=== PATIENT | female | born 1975 | race Caucasian/White ===

== ENCOUNTER 2019-10-04 07:16 | Emergency (ER) | payer SELFPAY ==
[~2019-10-04] VITALS: Ht 182.8 cm; Wt 86.2 kg
[2019-10-04] MEDS ORDERED: KETOROLAC 30 MG/ML VIAL IVP STA (07:30)
--- NOTE | 2019-10-04 07:38 | ED Back Pain ---
General Chief Complaint: Back Problems Stated Complaint: BACK INJ Source of Information: Patient History of Present Illness Date Seen by Provider: Oct 04, 2019 Time Seen by Provider: 07:22 Initial Comments PT ARRIVES VIA POV FROM HOME STATES THAT ON THURSDAY NIGHT 09/30/19, SHE WAS STRUCK ON RIGHT UPPER BACK/SCAPULA AREA WITH A HIT SOFT BALL ( HITTER WAS 17 Y.O. AND WAS A DIRECT HIT OFF THE BAT ) HAS HAD CONTINUED PAIN AND PAIN WITH BREATHING AND IS "HARD TO BREATHE" DUE TO PAIN PAIN IS NOW RADIATING AROUND TO RIGHT BREAST NO FEVER NO COUGH NO ABDOMINAL PAIN NO PARESTHESIAS OR MOTOR DEFICITS NO RELIEF WITH ALEVE. STATES SHE WAS UNABLE TO SLEEP DUE TO PAIN LM--6 YEARS AGO, HAS HAD BTL AND NOVASURE ENDOMETRIAL ABLATION Other Comments PCP: NONE Allergies and Home Medications Allergies Coded Allergies: No Known Drug Allergies (Unverified , 10/04/19) Home Medications Meloxicam 15 Mg Tablet, 15 MG PO DAILY Prescribed by: CHELITA MONTELONGO on 10/04/19913 Tramadol HCl 50 Mg Tablet, 50 MG PO Q4H Prescribed by: CHELITA MONTELONGO on 10/04/1914 Patient Home Medication List Home Medication List Reviewed: Yes Review of Systems Constitutional: no symptoms reported EENTM: no symptoms reported Respiratory: see HPI Cardiovascular: see HPI Gastrointestinal: no symptoms reported Genitourinary: no symptoms reported : No Control/STD Prophylaxis: Other (BTL AND NOVASURE ENDOMETRIAL ABLATION) Musculoskeletal: see HPI, back pain Skin: no symptoms reported Psychiatric/Neurological: No Symptoms Reported Past Bwrfikf-Paehct-Wagbdn Hx Past Med/Social Hx: Reviewed and Corrections made Patient Social History Alcohol Use: Regular Use Recreational Drug Use: No Smoking Status: Current Everyday Smoker (< 1/2 PPD) Recent Foreign Travel: No Contact w/Someone Who Travel: No Seasonal Allergies Seasonal Allergies: Yes Past Medical History Surgeries: Yes (NOVASURE ENDOMETRIAL ABLATION; UTERINE FIBRODS REMOVED) Tonsillectomy, Tubal Ligation Respiratory: No Cardiac: No Neurological: No : No Reproductive Disorders: Yes Female Reproductive Disorders: Menstrual Problems Genitourinary: No Gastrointestinal: Yes Gastroesophageal Reflux Musculoskeletal: Yes Chronic Back Pain Endocrine: No HEENT: Yes (S/P TONSILLECTOMY) Tonsilitis Cancer: No Psychosocial: No Integumentary: No Blood Disorders: No Physical Exam Vital Signs Vital Signs - First Documented 10/04/19 07:25 Temp 36.3 Pulse 91 Resp 20 B/P (MAP) 146/103 (117) Pulse Ox 100 O2 Delivery Room Air Capillary Refill : Height, Weight, BMI Height: '" Weight: lbs. oz. kg; BMI Method: General Appearance: No Apparent Distress, WD/WN, Other (WALKS UPRIGHT WITHOUT DIFFICULTY) HEENT: PERRL/EOMI Neck: Full Range of Motion, Normal Inspection, Non Tender, Supple Cardiovascular: Regular Rate, Rhythm, No Edema, No JVD, No Murmur, Normal Peripheral Pulses Respiratory: Normal Breath Sounds, No Accessory Muscle Use, No Respiratory Distress, Other (TENDERNESS TO RIGHT SCAPULAR AREA AND RIGHT CHEST WALL TO RIGHT BREAST. NO EXTERNAL EVIDENCE OF TRAUMA. 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 Skin: Normal Color, Warm/Dry; No Ecchymosis Progress/Results/Core Measures Results/Orders Lab Results Laboratory Tests Test 10/04/19 07:54 10/04/19 09:30 Range/Units White Blood Count 7.8 4.3-11.0 10^3/uL Red Blood Count 4.20 L 4.35-5.85 10^6/uL Hemoglobin 15.6 11.5-16.0 G/DL Hematocrit 44 35-52 % Mean Corpuscular Volume 104 H 80-99 FL Mean Corpuscular Hemoglobin 37 H 25-34 PG Mean Corpuscular Hemoglobin Concent 36 32-36 G/DL Red Cell Distribution Width 13.2 10.0-14.5 % Platelet Count 225 130-400 10^3/uL Mean Platelet Volume 10.3 7.4-10.4 FL Neutrophils (%) (Auto) 57 42-75 % Lymphocytes (%) (Auto) 28 12-44 % Monocytes (%) (Auto) 12 0-12 % Eosinophils (%) (Auto) 2 0-10 % Basophils (%) (Auto) 1 0-10 % Neutrophils # (Auto) 4.5 1.8-7.8 X 10^3 Lymphocytes # (Auto) 2.2 1.0-4.0 X 10^3 Monocytes # (Auto) 1.0 0.0-1.0 X 10^3 Eosinophils # (Auto) 0.2 0.0-0.3 10^3/uL Basophils # (Auto) 0.0 0.0-0.1 10^3/uL Sodium Level 139 135-145 MMOL/L Potassium Level 3.4 L 3.6-5.0 MMOL/L Chloride Level 103 98-107 MMOL/L Carbon Dioxide Level 21 21-32 MMOL/L Anion Gap 15 H 5-14 MMOL/L Blood Urea Nitrogen 10 7-18 MG/DL Creatinine 0.86 0.60-1.30 MG/DL Estimat Glomerular Filtration Rate > 60 BUN/Creatinine Ratio 12 Glucose Level 89 70-105 MG/DL Calcium Level 9.4 8.5-10.1 MG/DL Corrected Calcium 9.0 8.5-10.1 MG/DL Total Bilirubin 1.2 H 0.1-1.0 MG/DL Aspartate Amino Transf (AST/SGOT) 129 H 5-34 U/L Alanine Aminotransferase (ALT/SGPT) 175 H 0-55 U/L Alkaline Phosphatase 114 40-136 U/L Total Protein 7.6 6.4-8.2 GM/DL Albumin 4.5 3.2-4.5 GM/DL Serum Test, Qualitative NEGATIVE NEGATIVE Urine Color YELLOW Urine Clarity CLEAR Urine pH 6.5 5-9 Urine Specific Art <=1.005 1.016-1.022 Urine Protein TRACE H NEGATIVE Urine Glucose (UA) NEGATIVE NEGATIVE Urine Ketones 1+ H NEGATIVE Urine Nitrite POSITIVE H NEGATIVE Urine Bilirubin NEGATIVE NEGATIVE Urine Urobilinogen 0.2 < = 1.0 MG/DL Urine Leukocyte Esterase NEGATIVE NEGATIVE Urine RBC (Auto) 2+ H NEGATIVE Urine RBC 2-5 H /HPF Urine WBC 2-5 /HPF Urine Squamous Epithelial Cells 5-10 /HPF Urine Crystals NONE /LPF Urine Bacteria TRACE /HPF Urine Casts NONE /LPF Urine Mucus NEGATIVE /LPF Urine Culture Indicated YES My Orders Orders - CHELITA MONTELONGO DO Ed Iv/Invasive Line Start (10/04/19 07:30) Monitor-Rhythm Ecg Trace Only (10/04/19 07:30) Chest Pa/Lat (2 View) (10/04/19 07:30) Cbc With Automated Diff (10/04/19 07:30) Comprehensive Metabolic Panel (10/04/19 07:30) Hcg,Qualitative Serum (10/04/19 07:30) Ua Culture If Indicated (10/04/19 07:30) Ketorolac Injection (Toradol Injection) (10/04/19 07:30) Iohexol Injection (Omnipaque 350 Mg/Ml 1 (10/04/19 08:15) Received Contrast (Hold Metformin- Contr (10/04/19 08:15) Ns (Ivpb) (Sodium Chloride 0.9% Ivpb Bag (10/04/19 08:15) Ct Chest W (10/04/19 08:38) Urine Culture (10/04/19 09:30) Medications Given in ED Current Medications Medications Dose Ordered Sig/Toby Route Start Time Stop Time Status Last Admin Dose Admin Iohexol 75 ml ONCE ONCE IV 10/04/19 08:15 10/04/19 08:16 DC 10/04/19 08:45 74 ML Sodium Chloride 100 ml ONCE ONCE IV 10/04/19 08:15 10/04/19 08:16 DC 10/04/19 08:45 80 ML Vital Signs/I&O 10/04/19 10/04/19 07:25 10:05 Temp 36.3 Pulse 91 72 Resp 20 15 B/P (MAP) 146/103 (117) 133/97 Pulse Ox 100 99 O2 Delivery Room Air Room Air Progress Progress Note : Progress Note PAIN IMPROVED WITH TORADOL AT DISMISSAL, PT NOW STATES THAT SHE TAKES FLEXERIL EVERY NIGHT FOR HER CHRONIC BACK PAIN, AND SEES DR. MAHARAJ IN [place] FOR IT SHE ALSO STATES THAT SHE HAS BEEN DRINKING ALOT THE LAST 2 MONTHS DUE TO "COVID" Diagnostic Imaging Comments CXR--NO ACUTE PROCESS, PER RADIOLOGIST REPORT AT 09 CT CHEST--PER RADIOLOGIST REPORT AT 911 IMPRESSION: 1. No identified acute fracture. 2. No acute cardiopulmonary abnormality. 3. Prominent area of focal fat adjacent to the gallbladder fossa with additional generalized diffuse fatty infiltration of the liver. Reviewed: Reviewed by Me Departure Impression Primary Impression: RIGHT UPPER BACK AND SCAPULA CONTUSION Additional Impression: Elevated liver enzymes Disposition: 01 HOME, SELF-CARE Condition: Stable Departure-Patient Inst. Patient Instructions: Contusion (DC), Liver Function Test Add. Discharge Instructions: ALTERNATE ICE AND HEAT TO SORE AREAS AT 20 MINUTE INTERVALS ACTIVITIES TOLERATED FOLLOW UP WITH DR OF CHOICE IN 1 WEEK FOR FURTHER CARE AND RECHECK LIVER ENZYMES NO ALCOHOL NO TYLENOL/ACETAMINOPHEN All discharge instructions reviewed with patient and/or family. Voiced understanding. 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
[2019-10-04 08:02] LABS: BASOPHILS % (AUTO) 1 % (0-10); EOSINOPHILS # (AUTO) 0.2 10^3/uL (0.0-0.3); EOSINOPHILS % (AUTO) 2 % (0-10); HEMATOCRIT 44 % (35-52); HEMOGLOBIN 15.6 G/DL (11.5-16.0); LYMPHOCYTES # (AUTO) 2.2 X 10^3 (1.0-4.0); LYMPHOCYTES % (AUTO) 28 % (12-44); MEAN CORPUSCULAR HEMOGLOBIN 37 PG (25-34); MEAN CORPUSCULAR HGB CONC 36 G/DL (32-36); MEAN CORPUSCULAR VOLUME 104 FL (80-99); MEAN PLATELET VOLUME 10.3 FL (7.4-10.4); MONOCYTES % (AUTO) 12 % (0-12); NEUTROPHILS # (AUTO) 4.5 X 10^3 (1.8-7.8); NEUTROPHILS % (AUTO) 57 % (42-75); PLATELET COUNT 225 10^3/uL (130-400); RED CELL DISTRIBUTION WIDTH 13.2 % (10.0-14.5); WHITE BLOOD COUNT 7.8 10^3/uL (4.3-11.0)
[2019-10-04] MEDS ORDERED: NS 100 ML (IVPB) BAG IV ONE (08:15)
[2019-10-04] MEDS ORDERED: IOHEXOL 350 MG/ML 100 ML (OMNIPAQUE 350) VIAL IV ONE (08:15)
[2019-10-04] MEDS ORDERED: HOLD METFORMIN - RECEIVED CONTRAST 20 ML VIAL IV SCH (08:15)
[2019-10-04 08:26] LABS: ALANINE AMINOTRANSFERASE 175 U/L (0-55); ALBUMIN 4.5 GM/DL (3.2-4.5); ALKALINE PHOSPHATASE 114 U/L (40-136); BILIRUBIN,TOTAL 1.2 MG/DL (0.1-1.0); BUN/CREATININE RATIO 12; CALCIUM 9.4 MG/DL (8.5-10.1); CARBON DIOXIDE 21 MMOL/L (21-32); CHLORIDE 103 MMOL/L (98-107); CREATININE SERUM 0.86 MG/DL (0.60-1.30); GFR ESTIMATED > 60; GLUCOSE 89 MG/DL (70-105); POTASSIUM 3.4 MMOL/L (3.6-5.0); SODIUM 139 MMOL/L (135-145); TOTAL PROTEIN 7.6 GM/DL (6.4-8.2)
--- NOTE | 2019-10-04 08:58 | Diagnostic Imaging Report ---
INDICATION: Chest pain post injury PA and lateral chest obtained at 0845 a.m. Heart and mediastinal silhouette are normal in appearance. The lungs are clear. There is no pneumothorax or pleural fluid. There is no overt bony abnormality. IMPRESSION: Negative chest. Dictated by: Dictated on workstation # [id number]
--- NOTE | 2019-10-04 09:10 | Diagnostic Imaging Report ---
PROCEDURE: CT chest with contrast only. TECHNIQUE: Multiple contiguous axial images were obtained through the chest after administration of intravenous contrast. Auto Exposure Controls were utilized during the CT exam to meet ALARA standards for radiation dose reduction. DATE: October 04, 2019. COMPARISON: None. INDICATION: 43-year-old female, direct trauma to the right scapula on Thursday. Continued chest pain. FINDINGS: There are mild linear opacities in the right and left lower lobes, most consistent with atelectasis. There is no pulmonary nodule. There is no lung mass. There is no otherwise noted focal airspace consolidation. There is no pneumothorax. There is no pleural effusion. The central airways are patent. The heart is not enlarged. There is no pericardial effusion. There is no identified central pulmonary embolus. There is no mediastinal hematoma. There is no identified abnormally enlarged mediastinal, hilar, or axillary lymph node which meets CT size criteria for adenopathy. There is an area of low-attenuation adjacent to the gallbladder fossa with vessels coursing through the low attenuation. This most likely relates to an area of prominent focal fat. There may be generalized diffuse fatty infiltration of the liver. The outer liver contours are not nodular. There is an accessory splenule on axial image 130. There is no identified acute fracture or other acute osseous abnormality. There is a superior endplate Schmorl's node of T5. IMPRESSION: 1. No identified acute fracture. 2. No acute cardiopulmonary abnormality. 3. Prominent area of focal fat adjacent to the gallbladder fossa with additional generalized diffuse fatty infiltration of the liver. Dictated by: Dictated on workstation # [id number]
[2019-10-04] MEDS ORDERED: MELO15TA14 PO (09:14)
[2019-10-04] MEDS ORDERED: TRAM-42 PO (09:14)
[2019-10-04] MEDS ORDERED: CYCL10TA9 PO (09:14)
[2019-10-04 09:43] LABS: BILIRUBIN,URINE NEGATIVE (NEGATIVE); CLARITY,URINE CLEAR; COLOR,URINE YELLOW; GLUCOSE, URINE (UA) NEGATIVE (NEGATIVE); KETONES,URINE 1+ (NEGATIVE); LEUKOCYTE ESTERASE ,URINE NEGATIVE (NEGATIVE); NITRITE,URINE POSITIVE (NEGATIVE); PH,URINE 6.5 (5-9); PROTEIN,URINE TRACE (NEGATIVE)
[2019-10-04 09:51] LABS: BACTERIA,URINE TRACE /HPF
[2019-10-04 10:05] VITALS: BP 133/97
== END 2019-10-04 10:05 | disposition home or self-care (01) ==
LOC: EDUNIT# 07:16 → ER 07:17
DX: S40.011A Contusion of right shoulder, initial encounter (principal); S20.221A Contusion of right back wall of thorax, initial encounter; R94.5 Abnormal results of liver function studies; F17.200 Nicotine dependence, unspecified, uncomplicated; W21.07XA Struck by softball, initial encounter
CPT/HCPCS: 36415; 71046; 71260; 80053; 81000; 84703; 85025; 87077; 87088; 87186; 93041

== ENCOUNTER 2020-06-01 10:33 | Emergency (ER) | payer SELFPAY ==
[~2020-06-01] VITALS: Ht 182 cm; Wt 86.0 kg
[~2020-06-01 10:33] MED LIST: CYCL10TA9 PO; MELO15TA14 PO; TRAM-42 PO
[2020-06-01] MEDS ORDERED: KETOROLAC 30 MG/ML VIAL ONE (11:01)
[2020-06-01] MEDS ORDERED: LACTATED RINGERS 1,000 ML IV ONE ×2 (11:01→11:15)
[2020-06-01] MEDS ORDERED: ONDANSETRON 4 MG/2 ML (SDV) Z0FRAN ONE (11:02)
--- NOTE | 2020-06-01 11:11 | ED Cough/URI ---
General Chief Complaint: Cough/Cold/Flu Symptoms Stated Complaint: FEVER, BODY ACHES Nursing Triage Note: PT AMB TO ROOM 10 PT HAS FEVER, CARDONA, DIARRHEA , MUSCLE ACHES AND FATIGUE SINCE THURSDAY PT TESTED - FOR COVID AND - FLU ON THURSDAY THIS WEEK Sepsis Screen: Possible Sepsis Risk Source: patient Exam Limitations: no limitations History of Present Illness Date Seen by Provider: Jun 01, 2020 Time Seen by Provider: 10:47 Initial Comments Patient presents ER by private conveyance from home with chief complaint that her 5 days of headache, nausea without vomiting and diarrhea as well as fever of 102 tonight were not improving. She had exposure about a week ago to her sister at a basketball game who later tested positive for COVID-19. Her symptoms started 5 days ago. She is been using Tylenol, Aleve and ibuprofen for symptoms. No antidiarrheals. She called her doctor and they recommend she come out to be checked out. She was tested negative for Covid 2 days ago at [facility]. They did not give her any medicines for her nausea or wendy mmendations for her diarrhea. She has been drinking Gatorade. Allergies and Home Medications Allergies Coded Allergies: No Known Drug Allergies (Unverified , 10/04/19) Home Medications Meloxicam 15 Mg Tablet, 15 MG PO DAILY Prescribed by: CHELITA MONTELONGO on 10/04/19 0914 Ondansetron 4 Mg Tab.rapdis, 4 MG PO Q6H PRN for NAUSEA/VOMITING Prescribed by: MACKENZIE LAW on 06/01/20 1233 Tramadol HCl 50 Mg Tablet, 50 MG PO Q4H Prescribed by: CHELITA MONTELONGO on 10/04/19 0914 Patient Home Medication List Home Medication List Reviewed: Yes Review of Systems Review of Systems Constitutional: chills, fever, malaise EENTM: No ear discharge, No ear pain Respiratory: No cough, No short of breath Cardiovascular: No chest pain, No edema Gastrointestinal: No abdominal pain; diarrhea, nausea; No vomiting Genitourinary: No discharge, No dysuria Musculoskeletal: No back pain, No joint pain All Other Systems Reviewed Negative Unless Noted: Yes Past Wmznaxd-Lkqcuu-Wfvrcy Hx Patient Social History Alcohol Use: Occasionally Uses Number of Drinks Today: 0 Smoking Status: Current Everyday Smoker Type Used: Cigarettes Recent Infectious Disease Expo: No Recent Hopitalizations: No Immunizations Up To Date Tetanus Booster (TDap): Unknown PED Vaccines UTD: Yes Seasonal Allergies Seasonal Allergies: Yes Past Medical History Surgeries: Yes (NOVASURE ENDOMETRIAL ABLATION; UTERINE FIBRODS REMOVED) Tonsillectomy, Tubal Ligation Respiratory: No Cardiac: No Neurological: No : No Reproductive Disorders: Yes Female Reproductive Disorders: 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 oz. kg; 25.00 BMI Method: General Appearance: WD/WN, mild distress Eyes: Bilateral Eye Normal Inspection, Bilateral Eye PERRL, Bilateral Eye EOMI HEENT: PERRL/EOMI, normal ENT inspection, TMs normal, pharynx normal Neck: non-tender, full range of motion, supple, normal inspection Respiratory: lungs clear, normal breath sounds, no respiratory distress, no accessory muscle use Cardiovascular: normal peripheral pulses, regular rate, rhythm Gastrointestinal: normal bowel sounds, non tender, soft Neurologic/Psychiatric: alert, oriented x 3 Skin: normal color, warm/dry Progress/Results/Core Measures Suspected Sepsis Recent Fever Within 48 Hours: Yes Infection Criteria Present: Suspected New Infection New/Unexplained Altered Menta: No Sepsis Screen: Possible Sepsis Risk SIRS Temperature: Pulse: 108 Respiratory Rate: 18 Blood Pressure 150 /104 Mean: 119 Results/Orders Lab Results Laboratory Tests Test 06/01/20 10:50 Range/Units Coronavirus 2019 (GARRICK) Positive H Negative Micro Results Microbiology 06/01/20 Influenza Types A,B Antigen (MALICK) - Final, Complete My Orders Orders - MACKENZIE LAW Lactated Ringers (Lr 1000 Ml Iv Solution (06/01/20 11:15) Ketorolac Injection (Toradol Injection) (06/01/20 11:15) Ondansetron Injection (Zofran Injectio (06/01/20 11:15) Ketorolac Injection (Toradol Injection) (06/01/20 11:01) Lactated Ringers (Lr 1000 Ml Iv Solution (06/01/20 11:01) Ondansetron Injection (Zofran Injectio (06/01/20 11:02) Influenza A And B Antigens (06/01/20 11:05) Covid 19 Inhouse Test (06/01/20 11:05) Medications Given in ED Current Medications Medications Dose Ordered Sig/Toby Route Start Time Stop Time Status Last Admin Dose Admin Ketorolac Tromethamine 30 mg ONCE ONCE IVP 06/01/20 11:15 06/01/20 11:16 DC 06/01/20 11:09 30 MG Lactated Ringer's 1,000 ml @ 0 mls/hr Q0M ONCE IV 06/01/20 11:15 06/01/20 11:16 DC 06/01/20 11:08 1,000 MLS/HR Ondansetron HCl 4 mg ONCE ONCE IVP 06/01/20 11:15 06/01/20 11:16 DC 06/01/20 11:09 4 MG Vital Signs/I&O 06/01/20 10:43 Temp 36.3 Pulse 108 Resp 18 B/P (MAP) 150/104 (119) Pulse Ox 98 Capillary Refill : Less Than 3 Seconds Blood Pressure Mean: 119 Progress Note : Time: 11:10 Progress Note Still suspicious for COVID-19 so we will send out a PCR test as well as obtain a rapid and an influenza. We will give her some ondansetron and Toradol. We will give her a liter of fluids. She appears mildly dry and has tachycardia around 100-110. She has no fever presently. Otherwise she is doing well. Lung sounds clear oxygen saturation 98 to 100% on room air with nonlabored breathing. Suspect a viral syndrome. We will give her a note for work and some scripts to help manage her symptoms. Departure Impression Primary Impression: COVID-19 Disposition: 01 HOME, SELF-CARE Condition: Stable Departure-Patient Inst. Decision time for Depature: 12:32 Referrals: FARHANA CURRIE MD (PCP/Family) Primary Care Physician Patient Instructions: Coronavirus Disease 2019 (COVID-19) (DC) Add. Discharge Instructions: Drink plenty of fluids. Ondansetron 1 tablet every 6 hours as necessary for nausea and/or vomiting. Imodium/loperamide 2 tablets initially followed by 1 tablet every 4 hours afterwards that you are still having watery, loose diarrhea. Return to the ER if you are having oxygen saturations consistently less than 90%, worsening dehydration or other worrisome symptoms. You may go off quarantine after 06/08/2020. You must also be 72 hours symptoms free without medicines to mask your symptoms. Tylenol and ibuprofen or naproxen as necessary for headache and body aches. Everyone else closely associated with you should be quarantined for 1 week after the last time they were exposed to you as well as they need to be 72 hours symptoms free without masking medications. All discharge instructions reviewed with patient and/or family. Voiced understanding. Scripts Ondansetron (Ondansetron Odt) 4 Mg Tab.rapdis 4 MG PO Q6H PRN for NAUSEA/VOMITING, #15 TAB 0 Refills Prov: MACKENZIE LAW 06/01/20 Work/School Note: Work Release Form Date Seen in the Emergency Department: Jun 01, 2020 Return to Work: Jun 08, 2020 Restrictions: No Restrictions Other Restrictions Listed Below: Off quarantine when symptom-free for 72 hours without meds to mask symptoms MACKENZIE LAW Jun 01, 2020 11:11
[2020-06-01] MEDS ORDERED: ONDANSETRON 4 MG/2 ML (SDV) Z0FRAN IVP ONE (11:15)
[2020-06-01] MEDS ORDERED: KETOROLAC 30 MG/ML VIAL IVP ONE (11:15)
[2020-06-01] MEDS ORDERED: ONDA4TAB11 PO (12:33)
[2020-06-01 12:42] VITALS: BP 142/88
== END 2020-06-01 12:42 | disposition home or self-care (01) ==
LOC: EDUNIT# 10:33 → ER 10:35
DX: U07.1 COVID-19 (principal); F17.210 Nicotine dependence, cigarettes, uncomplicated
CPT/HCPCS: 87804; 99284; U0002; 87635

== ENCOUNTER 2020-09-02 13:17 | Emergency (ER) | payer MEDICAID ==
[~2020-09-02] VITALS: Ht 182 cm; Wt 83.9 kg
[~2020-09-02 13:17] MED LIST changes: +ONDA4TAB11 PO
[2020-09-02] MEDS ORDERED: ORPHENADRINE 60 MG/2 ML (NORFLEX) AMP (ED ONLY) IM ONE (13:30)
[2020-09-02] MEDS ORDERED: KETOROLAC 60 MG/2 ML VIAL IM ONE (13:30)
[2020-09-02] MEDS ORDERED: NAPR-1070 PO (13:39)
[2020-09-02] MEDS ORDERED: METH-732 PO (13:39)
--- NOTE | 2020-09-02 13:39 | ED Back Pain ---
General Chief Complaint: Back Problems Stated Complaint: R SIDE INJ Nursing Triage Note: ARRIVED VIA AMB TO ROOM 07 WITH COMPLAINTS OF RIGHT SIDED PAIN STARTING LAST NIGHT. STATES SHE WAS WALKING AND ACCIDENTLY HIT BY A MAN PLAYING FOOT BALL. Nursing Sepsis Screen: No Definite Risk Source of Information: Patient Exam Limitations: No Limitations History of Present Illness Date Seen by Provider: September 02, 2020 Time Seen by Provider: 13:35 Initial Comments To ER with right lateral chest wall pain. She was at a graduation libertarian yesterday when she rounded the corner and collided with some high school boys that were playing football. States that she was unable to sleep last night because of the pain. Is worse when she takes a deep breath. Location: Other (Right chest wall) Severity: Moderate Pain/Injury Location: Chest Associated Symptoms: denies symptoms Allergies and Home Medications Allergies Coded Allergies: No Known Drug Allergies (Unverified , 10/04/19) Home Medications Methocarbamol 750 Mg Tablet, 750 MG PO Q6-8HR Prescribed by: CAM HANNAH on 09/02/20 1339 Naproxen Sodium 550 Mg Tablet, 550 MG PO BID PRN for PAIN-SEVERE (8-10) Prescribed by: CAM HANNAH on 09/02/20 1339 Patient Home Medication List Home Medication List Reviewed: Yes Review of Systems Constitutional: see HPI EENTM: see HPI Respiratory: no symptoms reported Cardiovascular: see HPI Genitourinary: no symptoms reported Musculoskeletal: no symptoms reported Skin: no symptoms reported Psychiatric/Neurological: No Symptoms Reported Past Yzferrv-Bzxvrw-Vchins Hx Patient Social History Type Used: Cigarettes Recent Infectious Disease Expo: No Recent Hopitalizations: No Immunizations Up To Date Tetanus Booster (TDap): Unknown PED Vaccines UTD: Yes Seasonal Allergies Seasonal Allergies: Yes Past Medical History Surgeries: Yes (NOVASURE ENDOMETRIAL ABLATION; UTERINE FIBRODS REMOVED) Tonsillectomy, Tubal Ligation Respiratory: No Cardiac: No Neurological: No Reproductive Disorders: Yes Female Reproductive Disorders: 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 oz. kg; 25.00 BMI Method: General Appearance: No Apparent Distress, WD/WN Neck: Full Range of Motion, Normal Inspection Respiratory: Lungs Clear, No Accessory Muscle Use, No Respiratory Distress, Ot her (Tender to palpation but normal in appearance without ecchymosis or crepitus or erythema or abrasions. The right side of the abdomen is nontender to palpation.) Gastrointestinal: Normal Bowel Sounds, Non Tender, Soft Extremity: Normal Capillary Refill, Normal Inspection Neurologic/Psychiatric: Alert, Oriented x3 Skin: Normal Color, Warm/Dry Progress/Results/Core Measures Results/Orders My Orders Orders - CAM HANNAH APRN Ketorolac Injection (Toradol Injection) (09/02/20 13:30) Orphenadrine Inj (Ed Only) (Norflex Inje (09/02/20 13:30) Ribs/Unilateral With Chest (09/02/20 13:29) Ct Chest Wo (09/02/20 14:10) Cbc With Automated Diff (09/02/20 14:11) Comprehensive Metabolic Panel (09/02/20 14:11) Protime With Inr (09/02/20 14:11) Alcohol (09/02/20 14:11) Ua Culture If Indicated (09/02/20 14:23) Drug Screen Stat (Urine) (09/02/20 14:23) Medications Given in ED Current Medications Medications Dose Ordered Sig/Toby Route Start Time Stop Time Status Last Admin Dose Admin Ketorolac Tromethamine 60 mg ONCE ONCE IM 09/02/20 13:30 09/02/20 13:34 DC 09/02/20 13:57 60 MG Orphenadrine Citrate 60 mg ONCE ONCE IM 09/02/20 13:30 09/02/20 13:34 DC 09/02/20 13:57 60 MG Vital Signs/I&O 09/02/20 13:20 Temp 36.3 Pulse 101 Resp 16 B/P (MAP) 172/120 (137) Pulse Ox 97 O2 Delivery Room Air Blood Pressure Mean: 137 Departure Communication (Admissions) 1418-I discussed with her the multiple healing rib fractures which already have callus formation around them not consistent with an injury that occurred last night. She states that her daughter did strike her on accident while pitching a softball about a month ago. She states that she was seen here for this and had imaging done which did not show any fractures. However I am unable to see any visit that she had here since May nor do I see any outpatient x-rays that she had done. I am going to get a CT of the chest and check some labs. Impression Primary Impression: Rib fractures Disposition: HOME, SELF-CARE Condition: Stable Departure-Patient Inst. Decision time for Depature: 13:38 Referrals: FARHANA CURRIE MD (PCP/Family) Primary Care Physician Patient Instructions: Contusion (DC), Rib Fracture or Bruised Rib ED Add. Discharge Instructions: 1. Take the medication as directed. Return to ER for any concerns. Follow-up with your doctor this week for recheck All discharge instructions reviewed with patient and/or family. Voiced understanding. Scripts Hydrocodone/Acetaminophen (Hydrocodone-Acetamin 5-325 mg) 1 Each Tablet 1 TAB PO Q4H PRN for PAIN-MODERATE (5-7), #10 TAB Prov: CAM HANNAH APRN 09/02/20 Naproxen Sodium (Anaprox Ds) 550 Mg Tablet 550 MG PO BID PRN for PAIN-SEVERE (8-10), #14 TAB Prov: CAM HANNAH APRN 09/02/20 Methocarbamol (Methocarbamol) 750 Mg Tablet 750 MG PO Q6-8HR for Back Pain, #14 TAB Prov: CAM HANNAH APRN 09/02/20 CAM HANNAH APRN September 02, 2020 13:39
--- NOTE | 2020-09-02 14:07 | Diagnostic Imaging Report ---
Indication: Right-sided chest pain. Time of Exam 1:53 PM Heart size is normal. There are fractures involving right-sided 4th, 5th and 6th as well as 8th and 9th posterior ribs. There is some callus formation at these sites consistent with partial healing. There is no pneumothorax or hemothorax. Lungs are clear. No pulmonary contusion is seen. IMPRESSION: Multiple healing right-sided rib fractures. Dictated by: Dictated on workstation # [id number]
--- NOTE | 2020-09-02 14:44 | Diagnostic Imaging Report ---
EXAMINATION: CT chest without contrast. TECHNIQUE: Multiple contiguous axial images were obtained through the chest without the use of intravenous contrast. All CT scans use one or more of the following dose optimizing techniques: automated exposure control, MA and/or KvP adjustment based on patient size and exam type or iterative reconstruction. HISTORY: Right-sided rib fracture. COMPARISON: Rib radiographs performed earlier the same date. CTA chest on 10/04/2019. FINDINGS: The heart size is within normal limits. No pericardial effusion is present. There is no mediastinal, hilar or axillary lymphadenopathy. The lungs demonstrate no pulmonary nodule or mass. There is no focal area of consolidation. No central endobronchial obstructing lesion is identified. There is no pleural effusion or pneumothorax. Chronic right-sided rib fractures are visualized involving the 4th, 5th, 6th, 8th and 9th ribs. Acute nondisplaced rib fracture is seen involving the 11th right rib. No acute fracture is seen in the thoracic spine. Chronic height loss is seen in the superior endplates of T4 and T5. Limited views of the upper abdominal structures demonstrate no acute abnormality. There is hepatic steatosis. Both adrenal glands are unremarkable. IMPRESSION: 1. Acute appearing minimally displaced fracture involving the right 11th rib. Numerous chronic right-sided rib fractures are seen as well. No pneumothorax or pleural effusion. 2. Hepatic steatosis. Dictated by: Dictated on workstation # [id number]
[2020-09-02] MEDS ORDERED: ACHD5005 PO (15:10)
[2020-09-02 15:19] VITALS: BP 150/120
== END 2020-09-02 15:19 | disposition home or self-care (01) ==
LOC: EDUNIT# 13:17 → ER 13:18
DX: S22.41XA Multiple fractures of ribs, right side, initial encounter for closed fracture (principal); W21.01XA Struck by football, initial encounter
CPT/HCPCS: 71101; 71250

== ENCOUNTER 2021-03-26 11:21 | Emergency (ER) | payer MEDICAID ==
[~2021-03-26] VITALS: Ht 182.8 cm; Wt 85.7 kg
[~2021-03-26 11:21] MED LIST changes: +ACHD5005 PO; +CYCL10TA25 PO; -CYCL10TA9 PO; +METH-732 PO; +NAPR-1070 PO
--- NOTE | 2021-03-26 11:53 | ED Back Pain ---
General Chief Complaint: Back Problems Stated Complaint: BACK PAIN Nursing Triage Note: states she has chronic lower back pain points to mid low back. verbalizes she left wor to day and just wanted the to see she was seeking treatment for her back by visiting the ed. [facility] took one 5/325 hydrocodone at 0700 this am for pain. Source of Information: Patient Exam Limitations: No Limitations (CAM HANNAH APRN) History of Present Illness Date Seen by Provider: Mar 26, 2021 Time Seen by Provider: 11:52 Initial Comments To ER with chronic low back pain worsened yesterday when she was at work and an obese resident was about to fall, she tried to stop her. She already has a bad back and has hydrocodone like cereal and prednisone at home. She called into work today because of the pain and states that she was instructed to come here for evaluation by her boss. She already has medication, the pain is not alarming to her, she does not want any prescriptions. She denies any saddle anesthesia fevers or chills, she did not fall herself, no loss of bowel or bladder control. Location: Lumbar Spine, Paraspinous Muscles Timing/Duration: 1-2 Days Severity: Moderate Method of Injury: Other (Twisted) Modifying Factors: Worse With Movement Associated Symptoms: No numbness in legs/feet, No tingling in legs/feet, No sensory/motor loss; lower back pain (CAM HANNAH APRN) Allergies and Home Medications Allergies Coded Allergies: No Known Drug Allergies (Unverified , 10/04/19) Patient Home Medication List Home Medication List Reviewed: Yes (CAM HANNAH APRN) Hydrocodone/Acetaminophen (Hydrocodone-Acetamin 5-325 mg) 1 Each Tablet, 1 TAB PO Q4H PRN for PAIN-MODERATE (5-7) Prescribed by: CAM HANNAH on 09/02/20 1510 Methocarbamol (Methocarbamol) 750 Mg Tablet, 750 MG PO Q6-8HR Prescribed by: CAM HANNAH on 09/02/20 1339 Naproxen Sodium (Anaprox Ds) 550 Mg Tablet, 550 MG PO BID PRN for PAIN-SEVERE (8-10) Prescribed by: CAM HANNAH on 09/02/20 1339 Review of Systems Constitutional: see HPI EENTM: see HPI Respiratory: no symptoms reported Cardiovascular: no symptoms reported Genitourinary: no symptoms reported Musculoskeletal: see HPI, back pain Skin: no symptoms reported Psychiatric/Neurological: No Symptoms Reported (CAM HANNAH APRN) Past Ftfpnas-Akblvo-Cjpofd Hx Patient Social History Tobacco Use?: Yes Tobacco type used: Cigarettes Smoking Status: Current Everyday Smoker Use of E-Cig and/or Vaping dev: No Substance use?: No Alcohol Use?: Yes Alcohol Frequency: Once in a while Pt feels they are or have been: No (CAM HANNAH APRN) Immunizations Up To Date Tetanus Booster (TDap): Unknown PED Vaccines UTD: Yes Influenza Vaccine Up-to-Date: Yes; Up-to-Date First/Initial COVID19 Vaccinat: october 2020 Second COVID19 Vaccination Amadeo: november 2020 COVID19 Vaccine Junior Network Administrator: pancho (CAM HANNAH APRN) Seasonal Allergies Seasonal Allergies: Yes (CAM HANNAH APRN) Past Medical History Surgeries: Yes (NOVASURE ENDOMETRIAL ABLATION; UTERINE FIBRODS REMOVED) Tonsillectomy, Tubal Ligation Respiratory: No Cardiac: No Neurological: No Reproductive Disorders: Yes Female Reproductive Disorders: Menstrual Problems 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 oz. kg; 25.00 BMI Method: General Appearance: No Apparent Distress, WD/WN Neck: Full Range of Motion, Normal Inspection Respiratory: No Accessory Muscle Use, No Respiratory Distress Gastrointestinal: Normal Bowel Sounds, Non Tender, Soft Extremity: Normal Capillary Refill, Normal Range of Motion Neurologic/Psychiatric: Alert, Oriented x3 Skin: Normal Color, Warm/Dry (CAM HANNAH APRN) Progress/Results/Core Measures Results/Orders Vital Signs/I&O 03/26/21 03/26/21 11:30 12:05 Pulse 77 77 Resp 18 18 B/P (MAP) 161/113 (129) 161/113 Pulse Ox 99 99 (SAVANNAH TOLBERT MD) Blood Pressure Mean: 129 Departure Impression Primary Impression: Exacerbation of chronic back pain Disposition: 01 HOME, SELF-CARE Condition: Stable Departure-Patient Inst. Decision time for Depature: 11:52 (CAM HANNAH APRN) Referrals: [facility] (PCP) Primary Care Physician ELVA EPPS (Family) Primary Care Physician Patient Instructions: Low Back Pain (DC) Work/School Note: Work Release Form Date Seen in the Emergency Department: Mar 26, 2021 Return to Work: Mar 27, 2021 ATTENDING PHYSICIAN NOTE: I was physically present as attending physician in the emergency department during the care of this patient, but I was not directly involved in the decision making or delivery of care for this patient. (SAVANNAH TOLBERT MD) CAM HANNAH APRN Mar 26, 2021 11:53 SAVANNAH TOLBERT MD Mar 26, 2021 20:17
[2021-03-26 12:05] VITALS: BP 161/113
== END 2021-03-26 12:06 | disposition home or self-care (01) ==
LOC: EDUNIT# 11:21 → ER 11:23
DX: G89.29 Other chronic pain (principal); M54.50 Low back pain, unspecified; F17.210 Nicotine dependence, cigarettes, uncomplicated; Z79.891 Long term (current) use of opiate analgesic
CPT/HCPCS: 99281

== ENCOUNTER 2022-02-09 23:05 | Emergency (ER) | payer MEDICAID ==
[~2022-02-09] VITALS: Ht 182 cm; Wt 109.0 kg
[2022-02-09 23:21] VITALS: BP 144/99
[2022-02-09] MEDS ORDERED: KETO10TA PO (23:42)
[2022-02-09] MEDS ORDERED: TIZA-186 PO (23:42)
[2022-02-09] MEDS ORDERED: TRAM-42 PO (23:42)
[2022-02-09] MEDS ORDERED: ORPHENADRINE 60 MG/2 ML (NORFLEX) AMP (ED ONLY) IM ONE (23:45)
[2022-02-09] MEDS ORDERED: KETOROLAC 60 MG/2 ML VIAL IM ONE (23:45)
[2022-02-09] MEDS ORDERED: diphenhydrAMINE 50 MG/ML INJ (BENADRYL) IM ONE (23:45)
--- NOTE | 2022-02-09 23:49 | ED Back Pain ---
General Chief Complaint: Lower Extremity Stated Complaint: BACK & LEFT LEG PAIN Nursing Triage Note: Patient presented to the ER [facility] with complaints of left leg pain. Patient advised that she has been experiencing pain x 1wk that has become progressively worse. She advised she was prescribed flexiril and taking a steroid. She states she took ibuprofen at 1900 tonight but nothing is helping the pain. Source of Information: Patient History of Present Illness Date Seen by Provider: Feb 09, 2022 Time Seen by Provider: 23:22 Initial Comments PT ARRIVES VIA POV FROM HOME C/O LOW BACK PAIN RADIATING DOWN LEFT LEG STATES SHE HAS "MAJOR BACK PROBLEMS" FOR THE LAST 10 YEARS HAS HAD MRI YEARS AGO THAT SHOWED SPINAL STENOSIS AND DEGENERATIVE DISC DISEASE HAS NOT HAD SURGERY ON BACK, OR BEEN SEEN BY A SURGEON OR PAIN MANAGEMENT NO RECENT INJURY OR UNUSUAL ACTIVITY. PAIN HAS BEEN WORSE THE LAST SEVERAL WEEKS, WITH OCCASIONAL NUMBNESS AND TINGLING IN LEFT LEG. NO LOSS OF BOWEL OR BLADDER CONTROL. [facility] THE LAST 3 WEEKS, WITH THE LAST TIME BEING A WEEK AGO ON Thursday02/03/22 WAS DX WITH UTI AT THAT TIME, AND PRESCRIBED BACTRIM, FINISHED IT 2 DAYS AGO ON Thursday02/07/22--WAS NOT HAVING URINARY SYMPTOMS STATES SHE HAS BEEN ON STEROIDS TWICE IN THE LAST 3 WEEKS, AND LAST DOSE WAS ON Thursday02/06/22 HAS BEEN PRESCRIBED FLEXERIL, BUT STATES IT MAKES HER TOO TIRED DURING THE DAY FOR HER TO WORK ( WORKS FROM HOME), SO WAS PRESCRIBED ANOTHER UNKNOWN MEDICATION ON THURSDAY--"LIKE FLEXERIL BUT'S NOT SUPPOSED TO MAKE YOU TIRED" --TOOK ONE THIS MORNING, AND STATES IT IS NOT HELPING STATES SHE TOOK A FLEXERIL AT 1900 TONIGHT SHE HAS TAKEN ALEVE WITHOUT RELIEF TOOK "HALF OF A LEFTOVER HYDROCODONE" TONIGHT WITHOUT RELIEF DENIES ANY OTHER MEDICAL PROBLEMS Other Comments PCP: HUSSAIN, WAS [facility] EPPS Allergies and Home Medications Allergies Coded Allergies: No Known Drug Allergies (Unverified , 10/04/19) Patient Home Medication List Home Medication List Reviewed: Yes Hydrocodone/Acetaminophen (Hydrocodone-Acetamin 5-325 mg) 1 Each Tablet, 1 TAB PO Q4H PRN for PAIN-MODERATE (5-7) Prescribed by: CAM HANNAH on 09/02/20 1510 Ketorolac Tromethamine (Ketorolac Tromethamine) 10 Mg Tablet, 10 MG PO Q6H Prescribed by: CHELITA MONTELONGO on 02/09/22 234 Methocarbamol (Methocarbamol) 750 Mg Tablet, 750 MG PO Q6-8HR Prescribed by: CAM HANNAH on 09/02/20 133 Naproxen Sodium (Anaprox Ds) 550 Mg Tablet, 550 MG PO BID PRN for PAIN-SEVERE (8-10) Prescribed by: CAM HANNAH on 09/02/20 133 Tizanidine HCl (Tizanidine HCl) 4 Mg Tablet, 4 MG PO TID Prescribed by: CHELITA MONTELONGO on 02/09/22 234 Tramadol HCl (Ultram) 50 Mg Tablet, 50 MG PO Q4H Prescribed by: CHELITA MONTELONGO on 02/09/22 234 Review of Systems Constitutional: no symptoms reported Respiratory: no symptoms reported Cardiovascular: no symptoms reported Gastrointestinal: no symptoms reported Genitourinary: no symptoms reported : No Control/STD Prophylaxis: Other (S/P UTERINE ABLATION) Musculoskeletal: see HPI Skin: no symptoms reported Psychiatric/Neurological: See HPI Past Nrklnbd-Zpymmg-Vivvtc Hx Patient Social History Tobacco Use?: Yes Tobacco type used: Cigarettes Smoking Status: Current Everyday Smoker Substance use?: No Alcohol Use?: No Immunizations Up To Date Tetanus Booster (TDap): Unknown PED Vaccines UTD: Yes First/Initial COVID19 Vaccinat: october 2020 Second COVID19 Vaccination Amadeo: november 2020 Third COVID19 Vaccination Date: october 2020 Seasonal Allergies Seasonal Allergies: Yes Past Medical History Surgery/Hospitalization HX: spinal stenosis, degenerative back, tubal, tonsilectomy, ablasion Surgeries: Yes (NOVASURE ENDOMETRIAL ABLATION; UTERINE FIBRODS REMOVED) Tonsillectomy, Tubal Ligation Respiratory: No Cardiac: No Neurological: No Reproductive Disorders: Yes (S/P NOVASURE ENDOMETRIAL ABLATION) Female Reproductive Disorders: Menstrual Problems 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 oz. kg; 32.00 BMI Method: General Appearance: WD/WN, Anxious, Obese, Other (VERY DRAMATIC. TALKS LOUDLY NON-STOP. PT IS SITTING ON ER CART, STRADDLING IT WITH ONE LEG HANING OFF EACH SIDE OF THE BED. CONSTANT MOVEMENTS AND THRASHING ALL OVER--ROCKING BACK AND FORTH AND SIDE TO SIDE AND ALL OVER. LAYING ALL THE WAY FOREWARD ON THE ER CART WITH HEAD LAYING DOWN ON THE ER CART. SITS UP AND MOVES QUICKLY WITHOUT DIFFICULTY. ) Neck: Full Range of Motion, Normal Inspection Cardiovascular: Regular Rate, Rhythm, No Murmur Respiratory: Chest Non Tender, Normal Breath Sounds Gastrointestinal: Non Tender Back: Other (DIFFUSE MID AND LOWER BACK TENDERNESS, BILATERAL SI JOINT TENDERNESS--LEFT > RIGHT; DTR'S +1/4 BILATERALLY . MOTOR/SENSORY/VASCULAR INTACT. NEGATIVE STRAIGHT LEG RAISING BILATERALLY) Extremity: Normal Capillary Refill, Normal Inspection, Normal Range of Motion, Non Tender, No Calf Tenderness, No Pedal Edema Neurologic/Psychiatric: Alert, Oriented x3, No Motor/Sensory Deficits, patrol [employer] II- XII Norm as Tested Skin: Normal Color, Warm/Dry; No Rash Progress/Results/Core Measures Results/Orders My Orders Orders - CHELITA MONTELONGO DO Ketorolac Injection (Toradol Injection) (02/09/22 23:45) Orphenadrine Inj (Ed Only) (Norflex Inje (02/09/22 23:45) Diphenhydramine Injection (Benadryl Inje (02/09/22 23:45) Rx-Ondansetron Po (Rx-Zofran Po) (02/10/22 00:20) Medications Given in ED Current Medications Medications Dose Ordered Sig/Toby Route Start Time Stop Time Status Last Admin Dose Admin Diphenhydramine HCl 50 mg ONCE ONCE IM 02/09/22 23:45 02/09/22 23:46 DC 02/09/22 23:48 50 MG Ketorolac Tromethamine 60 mg ONCE ONCE IM 02/09/22 23:45 02/09/22 23:46 DC 02/09/22 23:48 60 MG Orphenadrine Citrate 60 mg ONCE ONCE IM 02/09/22 23:45 02/09/22 23:46 DC 02/09/22 23:49 60 MG Vital Signs/I&O 02/09/22 02/10/22 23:21 00:32 Pulse 97 92 Resp 18 18 B/P (MAP) 144/99 (114) Pulse Ox 97 97 O2 Delivery Room Air Room Air Blood Pressure Mean: 114 Progress Progress Note : Progress Note GIVEN TORADOL, NORFLEX, BENADRYL IM SYMPTOMS IMPROVED AT DISMISSAL PT IS STANDING UP AND WALKING AROUND IN ROOM PRIOR TO DISMISSAL NO INDICATION FOR IMAGING AT THIS TIME, PT HAS NOT HAD ANY INJURY,NO LOSS OF BOWEL OR BLADDER CONTROL, NO MOTOR OR SENSORY DEFICITS, AND SYMPTOMS ARE NOT NEW Departure Impression Primary Impression: Exacerbation of chronic back pain Additional Impression: Left sided sciatica Disposition: 01 HOME, SELF-CARE Condition: Stable Departure-Patient Inst. Decision time for Depature: 23:56 Referrals: [facility] (PCP) Primary Care Physician LEVA EPPS (Family) Primary Care Physician Patient Instructions: Low Back Pain ED, MANAGING YOUR CHRONIC PAIN, Sciatica ED Add. Discharge Instructions: MOIST HEAT TO AREA AT 20 MINUTE INTERVALS FOLLOW UP WITH [facility] THIS WEEK FOR FURTHER CARE All discharge instructions reviewed with patient and/or family. Voiced understanding. Scripts Tramadol HCl (Ultram) 50 Mg Tablet 50 MG PO Q4H for Pain, #10 TAB Prov: CHELITA MONTELONGO DO 02/09/22 Ketorolac Tromethamine (Ketorolac Tromethamine) 10 Mg Tablet 10 MG PO Q6H for Pain, #15 TAB Prov: CHELITA MONTELONGO DO 02/09/22 Tizanidine HCl (Tizanidine HCl) 4 Mg Tablet 4 MG PO TID, #15 TAB Prov: CHELITA MONTELONGO DO 02/09/22 CHELITA MONTELONGO DO Feb 09, 2022 23:49
[2022-02-10] MEDS ORDERED: RX-ONDANSETRON 4 MG ODT (ZOFRAN) PPK #4 PO STA (00:20)
== END 2022-02-10 00:33 | disposition home or self-care (01) ==
LOC: EDUNIT# 23:05 → ER 23:13
DX: M54.42 Lumbago with sciatica, left side (principal); G89.29 Other chronic pain; E66.9 Obesity, unspecified; F17.210 Nicotine dependence, cigarettes, uncomplicated; Z87.39 Personal history of other diseases of the musculoskeletal system and connective tissue; Z68.32 Body mass index [BMI] 32.0-32.9, adult
CPT/HCPCS: 99284